=== PATIENT | male | born 1960 | race Two or more races ===

== ENCOUNTER 2024-01-17 12:16 | Inpatient (IN) | payer MEDICAID ==
[~2024-01-17] VITALS: Ht 188 cm; Wt 81.6 kg
[2024-01-17 12:48] LABS: BASOPHILS % (AUTO) 0.4 % (0.0-2.0); EOSINOPHILS # (AUTO) 0.1 K/uL (0.0-0.7); EOSINOPHILS % (AUTO) 0.8 % (0.0-6.0); HEMATOCRIT 43 % (39-51); HEMOGLOBIN 14.6 g/dL (13.5-17.5); LYMPHOCYTES # (AUTO) 1.7 K/uL (0.8-4.8); LYMPHOCYTES % (AUTO) 21.5 % (20.0-44.0); MEAN CORPUSCULAR HEMOGLOBIN 31 PG (26.0-33.0); MEAN CORPUSCULAR HGB CONC 34 g/dl (31.0-36.0); MEAN CORPUSCULAR VOLUME 93 fL (80-96); MONOCYTES # (AUTO) 0.6 K/uL (0.1-1.30); MONOCYTES % (AUTO) 7.2 % (2.0-12.0); NEUTROPHILS # (AUTO) 5.5 K/uL (1.8-8.9); NEUTROPHILS % (AUTO) 70.1 % (43.0-81.0); PLATELET COUNT (AUTO) 286 K/uL (150-450); RED BLOOD CELL COUNT(AUTO) 4.65 MIL/uL (4.5-6.0); RED CELL DISTRIBUTION WIDTH 12.7 % (11.5-15.0); WHITE BLOOD COUNT (AUTO) 7.8 K/uL (4.3-11.0)
[2024-01-17] MEDS: IV NS 0.9% 1,000 ML BAG IV ONE (12:48)
[2024-01-17 12:59] LABS: CALCIUM, SERUM 9.5 mg/dL (8.5-10.1); CARBON DIOXIDE 29 mmol/L (21-32); CHLORIDE 105 mmol/L (98-107); GLUCOSE 95 mg/dL (74-106); POTASSIUM 3.6 mmol/L (3.5-5.1); SODIUM SERUM 140 mmol/L (136-145); UREA NITROGEN, BLOOD 11 mg/dL (7-18)
[2024-01-17 13:01] LABS: INR 1.07 (0.91-1.10); PARTIAL THROMBOPLASTIN TIME 25.9 SEC (24.3-34.3)
[2024-01-17 13:05] LABS: ALANINE AMINOTRANSFERASE 15 U/L (12-78); ALCOHOL, BLOOD < 3 mg/dL (0-10); ALKALINE PHOSPHATASE 48 U/L (46-116); ASPARTATE AMINOTRANSFERASE 9 U/L (15-37); BILIRUBIN,DIRECT 0.3 mg/dL (0.0-0.2); BILIRUBIN,TOTAL 1.8 mg/dL (0.2-1.0); TOTAL PROTEIN, SERUM 7.6 g/dL (6.4-8.2)
[2024-01-17 13:19] LABS: SERUM AMMONIA 25 umol/L (11-32)
[2024-01-17 14:07] LABS: AMPHETAMINE, URINE NEGATIVE (NEGATIVE); BARBITURATE, URINE NEGATIVE (NEGATIVE); CANNABINOID, URINE NEGATIVE (NEGATIVE); PHENCYCLIDINE SCREEN,URINE NEGATIVE (NEGATIVE)
[2024-01-17 14:08] LABS: BENZODIAZEPINE, URINE POSITIVE (NEGATIVE); COCCAINE, URINE POSITIVE (NEGATIVE); OPIATE, URINE POSITIVE (NEGATIVE)
[2024-01-17] MEDS ORDERED: ACETAMINOPHEN 325 MG TABLET PO PRN (16:30)
[2024-01-17] MEDS ORDERED: Z GUARD REMEDY 4 OZ OINT TP PRN (16:30)
[2024-01-17] MEDS ORDERED: ONDANSETRON HCL/PF 4 MG/2 ML VIAL IVP PRN (16:30)
[2024-01-17] MEDS ORDERED: MORPHINE SULFATE INJ 4 MG/ML DISP.SYRIN ONE (16:48)
[2024-01-17] MEDS: MORPHINE SULFATE INJ 4 MG/ML DISP.SYRIN IV ONE (17:00)
[2024-01-17] MEDS: METRONIDAZOLE 500 MG TABLET PO SCH (18:40)
[2024-01-17] MEDS: IV 1/2NS 1000 ML 1,000 ML IV PRN (18:41)
[2024-01-17] MEDS: CIPROFLOXACIN HCL 500 MG TABLET PO SCH (18:41)
[2024-01-17 20:00] VITALS: BP 140/79; TEMP 97.4; TEMP 97.5; O2SAT 99
[2024-01-18] VITALS: BP 153/83; TEMP 97.9; O2SAT 98
[2024-01-18] MEDS: ALPRAZOLAM 0.5 MG TABLET PO PRN (00:21)
[2024-01-18] MEDS: IBUPROFEN 400 MG TABLET PO PRN (00:22)
[2024-01-18 04:00] VITALS: BP 134/80; TEMP 97.9; O2SAT 98
[2024-01-18 07:00] LABS: BASOPHILS % (AUTO) 0.4 % (0.0-2.0); EOSINOPHILS % (AUTO) 0.5 % (0.0-6.0); HEMATOCRIT 42 % (39-51); HEMOGLOBIN 14.4 g/dL (13.5-17.5); LYMPHOCYTES # (AUTO) 1.4 K/uL (0.8-4.8); LYMPHOCYTES % (AUTO) 16.6 % (20.0-44.0); MEAN CORPUSCULAR HEMOGLOBIN 32 PG (26.0-33.0); MEAN CORPUSCULAR HGB CONC 34 g/dl (31.0-36.0); MEAN CORPUSCULAR VOLUME 93 fL (80-96); MONOCYTES # (AUTO) 0.5 K/uL (0.1-1.30); MONOCYTES % (AUTO) 6.2 % (2.0-12.0); NEUTROPHILS # (AUTO) 6.2 K/uL (1.8-8.9); NEUTROPHILS % (AUTO) 76.3 % (43.0-81.0); PLATELET COUNT (AUTO) 295 K/uL (150-450); RED CELL DISTRIBUTION WIDTH 12.7 % (11.5-15.0); WHITE BLOOD COUNT (AUTO) 8.1 K/uL (4.3-11.0)
[2024-01-18 07:33] LABS: CALCIUM, SERUM 9.6 mg/dL (8.5-10.1); CREATININE 0.8 mg/dL (0.6-1.3); MAGNESIUM 2.3 mg/dL (1.8-2.4); PHOSPHORUS 2.8 mg/dL (2.5-4.9); POTASSIUM 3.7 mmol/L (3.5-5.1)
[2024-01-18] MEDS: PANTOPRAZOLE 40 MG TABLET.DR PO SCH (07:46)
[2024-01-18 07:53] LABS: THYROID STIMULATING HORMONE 0.19 uIU/mL (0.358-3.74)
[2024-01-18 08:00] VITALS: BP 149/79; TEMP 98.4; O2SAT 97
[2024-01-18 09:00] LABS: C-REACTIVE PROTEIN < 0.20 mg/dL (0.0-0.30); CREATINE KINASE, TOTAL 25 U/L (39-308)
[2024-01-18] MEDS: METHOCARBAMOL (750MG) 750 MG TABLET PO SCH (11:36)
[2024-01-18 12:00] VITALS: BP 129/79; TEMP 98.1; O2SAT 94
[2024-01-18 16:00] VITALS: BP 139/78; TEMP 98.4; O2SAT 96
[2024-01-18 20:00] VITALS: BP 147/73; TEMP 97.8; O2SAT 97
[2024-01-18] MEDS: MAGNESIUM HYDROXIDE 30 ML UDC PO PRN (21:41)
[2024-01-19] VITALS: BP 154/78; TEMP 98.2; O2SAT 97
[2024-01-19 05:00] VITALS: BP 144/79; TEMP 97.7; O2SAT 97
[2024-01-19 06:45] LABS: BASOPHILS % (AUTO) 0.2 % (0.0-2.0); EOSINOPHILS % (AUTO) 0.4 % (0.0-6.0); HEMATOCRIT 38 % (39-51); HEMOGLOBIN 13.5 g/dL (13.5-17.5); LYMPHOCYTES % (AUTO) 14.7 % (20.0-44.0); MEAN CORPUSCULAR HEMOGLOBIN 33 PG (26.0-33.0); MEAN CORPUSCULAR HGB CONC 35 g/dl (31.0-36.0); MEAN CORPUSCULAR VOLUME 92 fL (80-96); MONOCYTES # (AUTO) 0.5 K/uL (0.1-1.30); MONOCYTES % (AUTO) 7.3 % (2.0-12.0); NEUTROPHILS # (AUTO) 5.5 K/uL (1.8-8.9); NEUTROPHILS % (AUTO) 77.4 % (43.0-81.0); PLATELET COUNT (AUTO) 259 K/uL (150-450); RED BLOOD CELL COUNT(AUTO) 4.13 MIL/uL (4.5-6.0); RED CELL DISTRIBUTION WIDTH 12.8 % (11.5-15.0); WHITE BLOOD COUNT (AUTO) 7.1 K/uL (4.3-11.0)
[2024-01-19 07:05] LABS: CALCIUM, SERUM 9.3 mg/dL (8.5-10.1); CREATININE 0.8 mg/dL (0.6-1.3); MAGNESIUM 2.2 mg/dL (1.8-2.4); PHOSPHORUS 2.8 mg/dL (2.5-4.9); POTASSIUM 3.4 mmol/L (3.5-5.1)
[2024-01-19 07:30] VITALS: BP 136/84; TEMP 98.2; O2SAT 97
[2024-01-19] MEDS: PREGABALIN 25 MG CAPSULE PO SCH (08:10)
[2024-01-19] MEDS: POTASSIUM CHLORIDE 20 MEQ TAB.PRT.SR PO ONE (09:38)
[2024-01-19] MEDS: CYANOCOBALAMIN 1,000 MCG/ML VIAL IM SCH (10:42)
[2024-01-19] MEDS ORDERED: METH-649 PO (11:04)
[2024-01-19] MEDS ORDERED: PREG50CA PO (11:04)
[2024-01-19] MEDS ORDERED: MECO10005 PO (12:20)
== END 2024-01-19 17:40 | disposition home or self-care (01) | DRG 82 ==
LOC: ER 12:32 → MED 17:26 → UNDOADMIN 17:26 → MED 18:15 → TELE 19:53
PROVIDERS: ADMIT Nurse Practitioner Family; ATTEND Nurse Practitioner Family
DX: H35.52 Pigmentary retinal dystrophy (principal); E53.8 Deficiency of other specified B group vitamins; R19.7 Diarrhea, unspecified; M51.9 Unspecified thoracic, thoracolumbar and lumbosacral intervertebral disc disorder; E80.6 Other disorders of bilirubin metabolism; Z87.891 Personal history of nicotine dependence; R53.1 Weakness; F19.10 Other psychoactive substance abuse, uncomplicated; G31.84 Mild cognitive impairment of uncertain or unknown etiology
CPT/HCPCS: 36415; 70450-TC; 70551-TC; 71045-TC; 72125-TC; 72141-TC; 72146-TC; 72148-TC; 80048-TC; 80061-TC; 80076-TC; 82140-TC; 82550-TC; 82607-TC; 82962-TC; 83605-TC; 83735-TC; 83921; 84100-TC; 84425; 84439-TC; 84443-TC; 84484-TC; 85025-TC; 85652-TC; 85730-TC; 86140-TC; 87040-TC; 93307-TC; 97110-TC; 97112-TC; 97116-TC; 97530-TC; 97535-TC; G0378; G0480; J2270; J3420; J3490; J7030

== ENCOUNTER 2024-01-24 17:19 | Emergency (ER) | payer OTHER ==
[~2024-01-24] VITALS: Ht 188 cm; Wt 81.6 kg
[~2024-01-24 17:19] MED LIST: MECO10005 PO; METH-649 PO; PREG50CA PO
[2024-01-24 17:44] LABS: BASOPHILS % (AUTO) 0.3 % (0.0-2.0); EOSINOPHILS # (AUTO) 0.1 K/uL (0.0-0.7); EOSINOPHILS % (AUTO) 0.6 % (0.0-6.0); HEMATOCRIT 39 % (39-51); HEMOGLOBIN 13.3 g/dL (13.5-17.5); LYMPHOCYTES # (AUTO) 1.4 K/uL (0.8-4.8); LYMPHOCYTES % (AUTO) 15.4 % (20.0-44.0); MEAN CORPUSCULAR HEMOGLOBIN 32 PG (26.0-33.0); MEAN CORPUSCULAR HGB CONC 34 g/dl (31.0-36.0); MEAN CORPUSCULAR VOLUME 94 fL (80-96); MONOCYTES # (AUTO) 0.6 K/uL (0.1-1.30); MONOCYTES % (AUTO) 6.2 % (2.0-12.0); NEUTROPHILS % (AUTO) 77.5 % (43.0-81.0); PLATELET COUNT (AUTO) 281 K/uL (150-450); RED BLOOD CELL COUNT(AUTO) 4.11 MIL/uL (4.5-6.0)
[2024-01-24 18:01] LABS: CALCIUM, SERUM 9.3 mg/dL (8.5-10.1); CARBON DIOXIDE 26 mmol/L (21-32); CHLORIDE 106 mmol/L (98-107); CREATININE 0.7 mg/dL (0.6-1.3); GLUCOSE 103 mg/dL (74-106); POTASSIUM 3.5 mmol/L (3.5-5.1); SODIUM SERUM 141 mmol/L (136-145); UREA NITROGEN, BLOOD 12 mg/dL (7-18)
[2024-01-24 18:07] LABS: ALANINE AMINOTRANSFERASE 17 U/L (12-78); ALBUMIN 3.1 g/dL (3.4-5.0); ALCOHOL, BLOOD < 3 mg/dL (0-10); ALKALINE PHOSPHATASE 49 U/L (46-116); ASPARTATE AMINOTRANSFERASE 8 U/L (15-37); BILIRUBIN,DIRECT 0.3 mg/dL (0.0-0.2); BILIRUBIN,TOTAL 1.2 mg/dL (0.2-1.0); TOTAL PROTEIN, SERUM 6.7 g/dL (6.4-8.2)
[2024-01-24 18:10] LABS: ACETAMINOPHEN 0 ug/ml (10-30); SALICYLATE < 0.2 mg/dL (2.8-20.0)
[2024-01-24 19:56] LABS: APPEARANCE,URINE CLEAR (CLEAR); BILIRUBIN,URINE NEGATIVE (NEGATIVE); BLOOD, URINE NEGATIVE Ery/uL (NEGATIVE); COLOR,URINE YELLOW (YELLOW); KETONES,URINE NEGATIVE (NEGATIVE); LEUKOCYTE ESTERASE ,URINE NEGATIVE (NEGATIVE); NITRITE, URINE NEGATIVE (NEGATIVE); PROTEIN,URINE NEGATIVE (NEGATIVE); UGLUCOSE NEGATIVE (NEGATIVE); UROBILINOGEN,URINE 0.2 EU/dL (0.2)
[2024-01-24 20:10] LABS: AMPHETAMINE, URINE NEGATIVE (NEGATIVE); BARBITURATE, URINE NEGATIVE (NEGATIVE); CANNABINOID, URINE NEGATIVE (NEGATIVE); PHENCYCLIDINE SCREEN,URINE NEGATIVE (NEGATIVE)
[2024-01-24 20:12] LABS: BENZODIAZEPINE, URINE POSITIVE (NEGATIVE); COCCAINE, URINE POSITIVE (NEGATIVE); OPIATE, URINE POSITIVE (NEGATIVE)
[2024-01-24] MEDS ORDERED: NALO4SPR BNOSTRILS (21:37)
[2024-01-24] MEDS ORDERED: MELA2.5T PO (21:49)
[2024-01-25 00:48] VITALS: BP 128/80; TEMP 98.1; O2SAT 99
== END 2024-01-25 00:54 | disposition home or self-care (01) ==
LOC: ER 19:07
DX: U07.1 COVID-19 (principal); T42.4X1A Poisoning by benzodiazepines, accidental (unintentional), initial encounter; T40.1X1A Poisoning by heroin, accidental (unintentional), initial encounter; T40.5X1A Poisoning by cocaine, accidental (unintentional), initial encounter; F19.10 Other psychoactive substance abuse, uncomplicated; F10.10 Alcohol abuse, uncomplicated; Y92.89 Other specified places as the place of occurrence of the external cause
CPT/HCPCS: 99285; 85025; 80048; 80076; 81003; 36415; 82962; 87426; 80143; 80320; 80307; J7030; G0480